=== PATIENT | male | born 1940 | race Caucasian/White ===

== ENCOUNTER 2016-12-05 14:24 | Inpatient (IN) ==
[2016-12-05] MEDS ORDERED: ACETAMINOPHEN 325 MG TABLET PO PRN (14:33)
[2016-12-05] MEDS ORDERED: ZALEPLON 5 MG CAPSULE PO PRN (14:33)
[2016-12-05] MEDS ORDERED: ONDANSETRON 4 MG/2 ML VIAL IV PRN (14:33)
[2016-12-05] MEDS ORDERED: ENOXAPARIN 40 MG/0.4 ML SYRINGE ONE (17:26)
[2016-12-05] MEDS: SODIUM CHLORIDE 0.9% 1,000 ML IV SCH (17:39)
[2016-12-05] MEDS: CLINDAMYCIN INJ 600 MG in PREMIX 1 EACH IV SCH (17:40)
[2016-12-05] MEDS ORDERED: ENOXAPARIN 30 MG/0.3 ML SYRINGE SUBCUT SCH (18:00)
[2016-12-05] MEDS ORDERED: PIPERACILLIN/TAZOBACTAM 3,375 MG in SODIUM CHLORIDE 0.9% 100 ML IV SCH (18:00)
[2016-12-05] MEDS ORDERED: HEPARIN 5,000 UNIT/1 ML VIAL IV ONE (19:47)
--- NOTE | 2016-12-05 19:53 | Hospitalist History & Physical ---
Assessment and Plan - Time spent with patient Time spent with patient: Greater than 30 minutes (1) Deep vein thrombosis (DVT) of right lower extremity Status: Acute Assessment and plan: Start heparin drip. The patient received Lovenox at the outside facility. Heparin drip per protocol and transition to Coumadin or and NOAC once renal function improves Current Visit: Yes Qualifiers: Affected thrombotic vein of extremity: popliteal Chronicity: acute Qualified Code(s): I82.431 - Acute embolism and thrombosis of right popliteal vein (2) Cellulitis of right lower extremity Status: Acute Assessment and plan: Start Teflaro, renal dose 300 mg's IV every 12 hours and continue clindamycin. Current Visit: Yes (3) Polycythemia Status: Acute Assessment and plan: Continue home medications. Consult Dr. Ward. Current Visit: Yes (4) Hypertension Status: Chronic Assessment and plan: The patient was on lisinopril and hydrochlorothiazide as an outpatient. Those have been discontinued secondary to acute kidney injury. Will monitor blood pressure in order as needed hydralazine. Avoid nephrotoxic medications. Current Visit: Yes Qualifiers: Hypertension type: essential hypertension Qualified Code(s): I10 - Essential (primary) hypertension (5) Acute kidney injury Status: Acute Assessment and plan: Avoid nephrotoxic medications. Consult nephrology. Hydrate with IV fluids. I suspect this is related to the combination of POLY inhibitor, hydrochlorothiazide , Bactrim. The patient is not hypotensive and does not appear to have acute tubular necrosis. He is making urine and reports it is clear in color. Will also obtain a UA. No indication for renal ultrasound at this time. Current Visit: Yes History of Present Illness Chief complaint: Right lower extremity redness and swelling History of present illness: Mr. Galvan is a 76 year old male transferred from [facility] this afternoon for further evaluation of right lower extremity redness and swelling. The patient was admitted to the hospital yesterday afternoon for treatment of cellulitis of the right lower extremity that began approximately 1-2 weeks ago. The patient was treated as an outpatient with Bactrim. His infection did not resolve and worsened prompting him to go to his doctor's office. He had a lower extremity Doppler that showed a DVT in the superficial femoral vein and popliteal vein. Femoral vein was unremarkable. The patient also has acute kidney injury with a creatinine of 3.5 and a BUN of 68. He was transferred here for further evaluation by nephrology and general surgery. He has a history of polycythemia and is followed by Dr. Ward and Dr. Jose Miguel Payne. He reports having a entry wound into the medial right calf. 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 He thinks this happened back in June. Since that time it has developed redness and drained some purulent material. He was treated with Bactrim as an outpatient. He denies any fever or chills. No nausea or vomiting. No recent hospitalizations. The patient is a full code. His home medications were reviewed and reconciled. His son was present at the bedside at the time of my evaluation. Patient is notably hard of hearing. Home Medications Medication Instructions Recorded Confirmed Type Hydroxyurea 1,000 mg PO DAILY 12/05/16 12/05/16 History Levothyroxine Tab [Synthroid Tab] 125 mcg PO DAILY@0700 12/05/16 12/05/16 History Lisinopril 20 mg PO DAILY 12/05/16 12/05/16 History hydroCHLOROthiazide 1 tablet PO DAILY 12/05/16 12/05/16 History [Hydrochlorothiazide] Allergies Allergy/AdvReac Type Severity Reaction Status Date / Time No Known Allergies Allergy Verified 12/05/16 16:50 Medical,Surgical,& Family Hx - Medical History Cardio: History of: Hypertension Endocrine: History of: Thyroid Disorder Hematology: History of: Clotting Problems (Polycytopenia) Other: History of: Cancer (prostate, 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,) - Surgical History Additional Surgical History: Skin cancer excisions - Family History Family History: Reports;: Family Cancer (dad-lymphoma), Family Diabetes (mother) , Family Heart Disease (mother, brother) - Social History Smoking Status: Never smoker Frequency of Alcohol Use: None Type of Drug Use: None Marital Status: Lives With:: Alone Functional capacity: independent ambulation 12 point system: reviewed and no additional remarkable complaints except as stated - Musculoskeletal Musculoskeletal: Present: as per HPI Exam - Constitutional Vitals: Period Temp Pulse Resp BP Sys/Pineda Pulse Ox Last 24 Hr 96.9 F 68 20 137/71 98 Exam: Constitutional System: No distress. No tremulousness. The patient was pleasant and cooperative. He is hard of hearing. He wears hearing aids in both ears. Head: Normocephalic, atraumatic. Ears, Nose and Throat System: No pain or tenderness. No epistaxis or discharge. Eyes System: Pupils equal, round, and reactive. Extraocular muscles intact. Neck: Supple, without adenopathy, No jugular venous distention. No thyromegaly, neck mass, or prior surgery apparent. Respiratory System: Chest clear to auscultation. Cardiovascular System: Heart with regular rate and rhythm. No murmur. GI System: Abdomen soft, nontender. Normo active bowel sounds present. Musculoskeletal System: Right lower extremity with redness and warmth distal to the knee and all the way down to the ankle. It is worse on the medial side of the leg and appears to spare the most of the posterior aspect of the right lower extremity. There is some redness and swelling just below the medial malleolus. Of note the patient has a chronic wound to the right great toe which does not appear acutely infected but does express some serosanguineous fluid that is nonpurulent. This does not appear to be the focus of the infection. More proximally on the medial calf, is an area of necrosis with eschar. The patient reports this is the primary entry wound several weeks back. He has full range of motion and full distal pulses. Neurological System: No discernable sensory deficit. No aphasia Psychiatric System: Conversation is rational Results - Labs Lab Results: I have reviewed the past 24 hour labs Labs: Labs from the outside facility were reviewed - Diagnostic Findings Procedure: Ultrasound: report reviewed by me Quality Measures - VTE Contraindication to Mechanical VTE Prophylaxis: Current Diagnosis of DVT
[2016-12-05] MEDS ORDERED: hydrALAZINE 20 MG/1 ML VIAL IV PRN (20:00)
[2016-12-05] MEDS: HEPARIN DRIP 25,000 UNITS/500 ML PREMIX IV SCH (22:07)
[2016-12-05] MEDS: CEFTAROLINE 300 MG in SODIUM CHLORIDE 0.9% 100 ML IV SCH (22:17)
[2016-12-06] MEDS: CLINDAMYCIN INJ 600 MG in PREMIX 1 EACH IV SCH ×4 (00:26→18:00)
[2016-12-06 05:38] LABS: Basophils # 0.1 10*3/uL (0.0-0.2); Basophils % 1.2 % (0.0-0.8); Eosinophils # 0.3 10*3/uL (0.0-0.87); Eosinophils % 2.1 % (0.00-10.9); Hematocrit 49.3 VOL% (42.0-52.0); Hemoglobin 17.1 GM/DL (14.0-18.0); Immature Granulocytes % 0.8 %; Lymphocytes # 6.8 10*3/uL (1.4-4.0); Mean Corpuscular HGB Conc 34.7 GM/DL (32-36); Mean Corpuscular Hemoglobin 39 PG (27-34); Monocytes # 0.5 10*3/uL (0.11-0.8); Monocytes % 4.3 % (1.7-12.7); NRBC # 0.04 10*3/uL; Neutrophils # 4.3 10*3/uL (1.4-7.4); Neutrophils % 35.6 % (38.7-73.9); Platelet Count 131 T/CUMM (130-400); Red Blood Count 4.44 MC/CUMM (3.8-5.5); Red Cell Distribution Width 17.5 % (9.3-17.3); White Blood Count 12.2 T/CUMM (4-12)
[2016-12-06] MEDS: LEVOTHYROXINE 125 MCG TABLET PO SCH (06:06)
[2016-12-06 06:09] LABS: Eosinophils 5 % (0-10); Lymphocytes 34 % (20-55); Platelet Estimate Adequate; Segmented Neutrophils 56 % (50-85); Smudge Cells Moderate; Total Cells Counted 100
[2016-12-06 06:42] LABS: Albumin 2.9 G/DL (3.4-5.0); Bilirubin,Total 0.6 MG/DL (0.2-1.0); Calcium 8.6 MG/DL (8.5-10.1); Magnesium 2.2 MG/DL (1.8-2.4); Potassium 5.4 MMOL/L (3.5-5.1); Total Protein 6.6 G/DL (6.4-8.3)
[2016-12-06] MEDS ORDERED: SODIUM POLYSTYRENE SULFATE 15 GM/60 ML BOTTLE PO STA (06:59)
--- NOTE | 2016-12-06 08:20 | Hematology Consult ---
Assessment and Plan - Time spent with patient Time spent with patient: Greater than 30 minutes (1) Polycythemia Status: Acute Assessment and plan: There is very little to offer from hematology standpoint beyond what you are already doing. I agree with anticoagulation and IV antibiotics. Patient should just remain on his Hydrea at his current dosing. Once he is discharged home and likely on Coumadin, he can continue his follow-up with Dr. Ervin in [place]. I will check back in on him tomorrow. If there are any further questions that we can address, please feel free to contact me. Current Visit: Yes (2) Deep vein thrombosis (DVT) of right lower extremity Status: Acute Current Visit: Yes Qualifiers: Affected thrombotic vein of extremity: popliteal Chronicity: acute Qualified Code(s): I82.431 - Acute embolism and thrombosis of right popliteal vein (3) Cellulitis of right lower extremity Status: Acute Current Visit: Yes History of Present Illness - Consult Narrative History of present illness: Mr. Galvan is a 76 year old male with a long-standing history of polycythemia vera followed by Dr. Jose Miguel Ervin in [place] and being treated with Hydrea. He was previously followed here at [facility] by me until March 2016 when he transferred his care to [place] to be closer to home. We no longer see him here locally. He was sent here by Dr. Walls from [place] for evaluation of right lower extremity cellulitis and newly found right lower extremity DVT. Is currently on IV antibiotics and heparin infusion. His CBC is within a good range. It sounds like his cellulitis has been an off and on bilateral now for the past few months. My suspicion is that the DVT developed due to the persistent issues with cellulitis. People with PCV are also at a high risk for DVT formation but not usually when there are hemoglobin and hematocrit levels are within normal range. CC: Yumiko Cortez MD - Home Medications and Allergies Home Medications: Home Medications Medication Instructions Recorded Confirmed Type Hydroxyurea 1,000 mg PO DAILY 12/05/16 12/05/16 History Levothyroxine Tab [Synthroid Tab] 125 mcg PO DAILY@0700 12/05/16 12/05/16 History Lisinopril 20 mg PO DAILY 12/05/16 12/05/16 History hydroCHLOROthiazide 1 tablet PO DAILY 12/05/16 12/05/16 History [Hydrochlorothiazide] Allergies/Adverse Reactions: Allergies Allergy/AdvReac Type Severity Reaction Status Date / Time No Known Allergies Allergy Verified 12/05/16 16:50 Medical,Surgical,& Family Hx - Medical History Cardio: History of: Hypertension Endocrine: History of: Thyroid Disorder Hematology: History of: Clotting Problems (Polycytopenia) Other: History of: Cancer (prostate, 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,) - Family History Family History: Reports;: Family Cancer (dad-lymphoma), Family Diabetes (mother) , Family Heart Disease (mother, brother) - Social History Smoking Status: Never smoker Frequency of Alcohol Use: None Type of Drug Use: None 12 point system: reviewed and no additional remarkable complaints except as stated - Constitutional Constitutional: Absent: chills, fever(s) - Cardiovascular Cardiovascular ROS IM: Present: edema. Absent: chest pain - Respiratory Respiratory: Absent: cough, dyspnea - Gastrointestinal Gastrointestinal: Absent: abdominal pain Exam - Constitutional Vitals: Period Temp Pulse Resp BP Sys/Pineda Pulse Ox Last 24 Hr 96.6 F-97.2 F 60-68 18-20 122-137/60-71 94-98 General appearance: normal weight, no acute distress - Head Head Exam: Present: normocephalic, atraumatic - Eye Eye Exam: Present: EOMI Pupils: Present: PERRL - ENT ENT exam: Present: normal exam, normal oropharynx - Neck Neck exam: Absent: lymphadenopathy, thyromegaly - Respiratory Respiratory exam: Present: CTAB. Absent: wheezes - Cardiovascular Cardiovascular exam: Present: RRR. Absent: JVD - GI/Abdominal GI/Abdominal exam: Present: soft. Absent: ascites, distended, mass - Neurological Exam Neurological exam: Present: alert, oriented X3 - Psychiatric Psychiatric exam: Present: normal affect, normal mood - Skin Skin exam: Present: warm, dry Results - Labs CBC & BMP: 12/06/16 04:59 12/06/16 04:59 Lab Results: I have reviewed the past 24 hour labs - Diagnostic Findings Procedure: Ultrasound: report reviewed by me Quality Measures - VTE Contraindication to Mechanical VTE Prophylaxis: Current Diagnosis of DVT
--- NOTE | 2016-12-06 09:22 | General Surgery Consult Note ---
Assessment and Plan - Time spent with patient Time spent with patient: Less than 30 minutes (1) Cellulitis of right lower extremity Status: Acute Assessment and plan: He appears to have a cellulitis and the source of this is unclear. He does not recall ever having an x-ray of his lower extremity to make sure that there is not a foreign body present in the site of this wound that has not healed. We will obtain an x-ray. I would agree with the IV antibiotics and elevation as you are doing. Current Visit: Yes History of Present Illness Chief complaint: Infection right leg History of present illness: Mr. Galvan is a 76 year old male Who has had a intermittently healing and then draining area of his right medial calf. He states this is an area where he had an injury while working on a car back in June. He was not aware that it is really changed or gotten worse in the last few days when he had increased redness swelling and discomfort of his right lower extremity. The pain he has had in his right lower extremity has been very mild. He is unaware of fever or chills. He is also had an ulcer of his right great toe treated in the past by Dr. Yang and she had told him recently that this was healed. He does not know of any aggravating or alleviating factors. Home Medications Medication Instructions Recorded Confirmed Type Hydroxyurea 1,000 mg PO DAILY 12/05/16 12/05/16 History Levothyroxine Tab [Synthroid Tab] 125 mcg PO DAILY@0700 12/05/16 12/05/16 History Lisinopril 20 mg PO DAILY 12/05/16 12/05/16 History hydroCHLOROthiazide 1 tablet PO DAILY 12/05/16 12/05/16 History [Hydrochlorothiazide] Allergies Allergy/AdvReac Type Severity Reaction Status Date / Time No Known Allergies Allergy Verified 12/05/16 16:50 Medical,Surgical,& Family Hx - Medical History Cardio: History of: Hypertension Endocrine: History of: Thyroid Disorder Hematology: History of: Clotting Problems (Polycytopenia) Other: History of: Cancer (prostate, 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,) - Surgical History Additional Surgical History: Right great toe debridement - Family History Family History: Reports;: Family Cancer (dad-lymphoma), Family Diabetes (mother) , Family Heart Disease (mother, brother) - Social History Smoking Status: Never smoker Frequency of Alcohol Use: None Type of Drug Use: None - Constitutional Constitutional: Absent: anorexia, chills, fever(s) - Cardiovascular Cardiovascular: Absent: chest pain at rest, chest pain with activity, diaphoresis, dyspnea, dyspnea on exertion, syncope - Respiratory Respiratory: Absent: dyspnea, hemoptysis, dyspnea on exertion - Gastrointestinal Gastrointestinal: Absent: abdominal pain, hematemesis, hematochezia, nausea, vomiting - Genitourinary Genitourinary: Absent: hematuria - Musculoskeletal Musculoskeletal: Absent: back pain - Neurological Neurological: Absent: focal weakness, syncope - Endocrine Endocrine: Absent: polyuria Hematologic/Lymphatic: Absent: easy bleeding, easy bruising Exam - Constitutional Vitals: Period Temp Pulse Resp BP Sys/Pineda Pulse Ox Last 24 Hr 96.6 F-97.2 F 60-68 18-20 122-137/60-71 94-98 General appearance: no acute distress - Head Head exam: Present: normocephalic - Eye Eye exam: Absent: scleral icterus - ENT Mouth exam: Present: normal voice - Neck Neck exam: Present: trachea midline. Absent: tenderness - Respiratory Respiratory exam: Present: clear to auscultation bilaterally. Absent: accessory muscle use - Cardiovascular Cardiovascular exam: Present: RRR - GI/Abdominal GI/Abdominal exam: Present: soft. Absent: distended, guarding, tenderness, rebound - Extremities Exam Extremities exam: Present: edema, other (He does have palpable pedal pulses) - Neurological Exam Neurological exam: Present: alert, oriented X3. Absent: motor sensory deficit Quality Measures - VTE Contraindication to Mechanical VTE Prophylaxis: Current Diagnosis of DVT Results - Labs CBC & BMP: 12/06/16 04:59 12/06/16 04:59 Lab Results: I have reviewed the past 24 hour labs
[2016-12-06] MEDS: SODIUM CHLORIDE 0.9% 1,000 ML IV SCH ×3 (09:41→21:50)
[2016-12-06] MEDS: PANTOPRAZOLE 40 MG TABLET PO SCH (09:42)
[2016-12-06] MEDS: HYDROXYUREA 500 MG CAPSULE PO SCH (09:42)
[2016-12-06] MEDS: CEFTAROLINE 300 MG in SODIUM CHLORIDE 0.9% 100 ML IV SCH ×2 (09:42→21:51)
--- NOTE | 2016-12-06 10:09 | Hospitalist Progress Note ---
Assessment and Plan (1) Deep vein thrombosis (DVT) of right lower extremity Status: Acute Assessment and plan: Continue Heparin protocol. No SOB or chest pain. Current Visit: Yes Qualifiers: Affected thrombotic vein of extremity: popliteal Chronicity: acute Qualified Code(s): I82.431 - Acute embolism and thrombosis of right popliteal vein (2) Cellulitis of right lower extremity Status: Acute Assessment and plan: continue with IV antibiotics and elevation Follow Xray report and Surgery's recommendations Current Visit: Yes (3) Polycythemia Status: Acute Assessment and plan: Follow Hem/Onc's recommendations Current Visit: Yes (4) Hypertension Status: Chronic Assessment and plan: stable Current Visit: Yes Qualifiers: Hypertension type: essential hypertension Qualified Code(s): I10 - Essential (primary) hypertension (5) Acute kidney injury Status: Acute Assessment and plan: most likely due to drugs. Plan continue IVF continue to hold Nephrotoxics BMP in am Current Visit: Yes (6) Hyperkalemia Status: Acute Assessment and plan: Kayexalate x1 BMP in am. Current Visit: Yes Hospitalist: Subjective Interval history: 76yr old admitted overnight for multiple issue. Surgery saw patient this am and they have requested for Xrays of the right leg.He was give a dose of kayexalate this am due to hyperkalemia. His IVF was also reduced to 100cc/hr. He feels ok this am and had no new complaints. Exam - Constitutional Vitals: Period Temp Pulse Resp BP Sys/Pineda Pulse Ox Last 24 Hr 96.6 F-97.2 F 60-68 18-20 122-137/60-71 94-98 General appearance: no acute distress - Head Head exam: Present: normal inspection - Respiratory Respiratory exam: Present: clear to auscultation bilaterally - Cardiovascular Cardiovascular exam: Present: regular rate and rhythm - GI/Abdominal GI/Abdominal exam: Present: normal bowel sounds - Extremities Exam Extremities exam: Present: other (swelling and redness of right leg) - Neurological Exam Neurological exam: Present: alert, oriented X3 Results - Labs CBC & BMP: 12/06/16 04:59 12/06/16 04:59 Lab Results: I have reviewed the past 24 hour labs Quality Measures - VTE Contraindication to Mechanical VTE Prophylaxis: Current Diagnosis of DVT
--- NOTE | 2016-12-06 10:57 | XRay Report ---
Exam: XR tibia fibula RT Date: 12/06/2016 9:24 AM Comparison: None Indication: Cellulitis, evaluate for foreign body Technique:[AP and lateral right tibia/fibula] Findings: Soft tissue swelling. Joint space narrowing with sclerosis and osteophytes. Sclerotic ossific findings are noted. No acute fracture, dislocation, or definite radiopaque foreign body. Vascular calcifications are noted. Impression: Soft tissue swelling with no fracture, dislocation, or definite radiopaque foreign body. Foreign body may be present which is occult on x-ray. Moderate degenerative changes with possible old healed fractures in the distal right tibia. PROCEDURE INTERPRETED AT [facility] DEPARTMENT OF RADIOLOGY Final Report Signed by: Dr. Dahlia Merida
--- NOTE | 2016-12-06 13:00 | Nephrology Consult Note ---
History of Present Illness Chief complaint: Increased BUN and creatinine History of present illness: Mr. Galvan is a 76 year old male with a history of hypertension who was admitted yesterday when he presented to his local doctor with swelling and redness in his right lower leg. Patient was found to have a increased creatinine as well at that time. Patient states he has been having a sore, and go on his right leg for the past 3-4 months. He states it will get red and swollen and scab over then he will up and then recur later. On this occasion the patient's swelling and redness did not resolve he subsequently went to his local doctor and was found to have a clot in his leg in addition to the aforementioned findings. The patient denies any previous problems with his kidneys. He states he did have prostate cancer. He denies taking any pain medication or nonsteroidal anti-inflammatory medications. He denies any recent antibiotics prior to his admission here. The patient denies any nausea vomiting or diarrhea except having a little bit of loose stool since being given some Kayexalate on admission. He states he is not been eating quite as well as he should be prior to his admission. 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 ROS: Head - denies headaches ENT - denies sore throat Lymphatics - denies lymphadenopathy Hematology - denies bleeding problems Heart - denies chest pain Lungs - denies shortness of breath Abdomen - denies abdominal pain Musculoskeletal - denies arthritis Skin - denies rash Neurology - denies stroke General - denies fever PE: General: in no acute distress Eyes: Pupils are round and reactive, conjunctivae are clear ENT: Nose is clear, O/P is benign Neck: Supple, no thyromegaly Lymphatics: No cervical, supraclavicular or axillary adenopathy Heart: Regular rate and rhythm, no edema Lungs: Clear to auscultation anteriorly, chest expansion symmetric Abdomen: Soft, normoactive bowel sounds, no hepatomegaly Musculoskeletal: Patient's right leg is reddish in color with a quarter-sized scabbed lesion over his altman, there is also increased swelling in this leg, otherwise there is no joint erythema or effusions and no joint asymmetry. Skin: Normal turgor, normal hydration, no rash Neuro/Psych: Alert and cooperative with fair insight Home Medications Medication Instructions Recorded Confirmed Type Hydroxyurea 1,000 mg PO DAILY 12/05/16 12/05/16 History Levothyroxine Tab [Synthroid Tab] 125 mcg PO DAILY@0700 12/05/16 12/05/16 History Lisinopril 20 mg PO DAILY 12/05/16 12/05/16 History hydroCHLOROthiazide 1 tablet PO DAILY 12/05/16 12/05/16 History [Hydrochlorothiazide] Allergies Allergy/AdvReac Type Severity Reaction Status Date / Time No Known Allergies Allergy Verified 12/05/16 16:50 Medical,Surgical,& Family Hx - Medical History Cardio: History of: Hypertension Endocrine: History of: Thyroid Disorder Hematology: History of: Clotting Problems (Polycytopenia) Other: History of: Cancer (prostate, 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,) - Surgical History Additional Surgical History: Skin graft to his right leg - Family History Family History: Reports;: Family Cancer (dad-lymphoma), Family Diabetes (mother) , Family Heart Disease (mother, brother) - Social History Smoking Status: Never smoker Frequency of Alcohol Use: None Type of Drug Use: None Exam - Vital Signs Vital signs: Period Temp Pulse Resp BP Sys/Pineda Pulse Ox Last 24 Hr 96.6 F-97.3 F 60-68 18-20 122-137/60-71 94-98 Results - Labs CBC & BMP: 12/06/16 04:59 12/06/16 04:59 Assessment and Plan (1) Acute kidney injury Status: Acute Assessment and plan: I suspect this patient has some ATN injury related to his leg wound. Patient states he had not been eating and drinking quite as well as he had been in the past. In addition the patient takes an POLY inhibitor and a diuretic which may have exacerbated the strain to his kidneys from the right leg wound. I agree with IV fluids as ordered and the antibiotics. Hopefully his creatinine will begin to improve as his leg infection improves. I will continue to hold his POLY inhibitor and diuretic for now. Current Visit: Yes (2) Metabolic acidosis Status: Acute Assessment and plan: Give the patient some sodium bicarbonate Current Visit: Yes (3) Cellulitis of right lower extremity Status: Acute Assessment and plan: Continue antibiotics Current Visit: Yes (4) Deep vein thrombosis (DVT) of right lower extremity Status: Acute Current Visit: Yes Qualifiers: Affected thrombotic vein of extremity: popliteal Chronicity: acute Qualified Code(s): I82.431 - Acute embolism and thrombosis of right popliteal vein (5) Hyperkalemia Status: Acute Assessment and plan: This should improve with the IV fluids and correction of his acidosis Current Visit: Yes (6) Polycythemia Status: Acute Current Visit: Yes (7) Hypertension Status: Chronic Assessment and plan: Continue to monitor. Current Visit: Yes Qualifiers: Hypertension type: essential hypertension Qualified Code(s): I10 - Essential (primary) hypertension
[2016-12-06] MEDS: HEPARIN DRIP 25,000 UNITS/500 ML PREMIX IV SCH (16:20)
[2016-12-06] MEDS: SODIUM BICARBONATE 650 MG TABLET PO SCH (21:53)
[2016-12-07] MEDS: CLINDAMYCIN INJ 600 MG in PREMIX 1 EACH IV SCH ×4 (00:44→18:06)
[2016-12-07 05:31] LABS: Basophils # 0.1 10*3/uL (0.0-0.2); Eosinophils # 0.3 10*3/uL (0.0-0.87); Eosinophils % 2.3 % (0.00-10.9); Hemoglobin 15.9 GM/DL (14.0-18.0); Immature Granulocytes % 0.6 %; Immature Granulocytes Absolute 0.07 #; Lymphocytes # 6.7 10*3/uL (1.4-4.0); Lymphocytes % 59.4 % (21.2-54.2); Mean Corpuscular HGB Conc 34.6 GM/DL (32-36); Mean Corpuscular Hemoglobin 39 PG (27-34); Mean Corpuscular Volume 111.7 FL (87-102); Mean Platelet Volume 9.8 FL (9.6-12.0); Monocytes # 0.4 10*3/uL (0.11-0.8); Monocytes % 3.1 % (1.7-12.7); Neutrophils # 3.8 10*3/uL (1.4-7.4); Neutrophils % 33.6 % (38.7-73.9); Platelet Count 134 T/CUMM (130-400); Red Blood Count 4.12 MC/CUMM (3.8-5.5); White Blood Count 11.3 T/CUMM (4-12)
[2016-12-07 06:07] LABS: Calcium 8.2 MG/DL (8.5-10.1); Osmolality,Calculated 282.8 MOS/KG (273-304); Potassium 5.1 MMOL/L (3.5-5.1)
[2016-12-07] MEDS: LEVOTHYROXINE 125 MCG TABLET PO SCH (06:34)
--- NOTE | 2016-12-07 06:57 | General Surgery Progress Note ---
Assessment and Plan (1) Cellulitis of right lower extremity Status: Acute Assessment and plan: He appears to have a cellulitis and the source of this is unclear. He does not recall ever having an x-ray of his lower extremity to make sure that there is not a foreign body present in the site of this wound that has not healed. We will obtain an x-ray. I would agree with the IV antibiotics and elevation as you are doing. 12/07: He feels better and feels like his leg looks better. I agree that the erythema has decreased and the edema has decreased. He is responding to antibiotics and anticoagulation. I will be happy to see him back in follow-up once his cellulitis resolves. We may need to address this chronic wound on his medial calf. Current Visit: Yes Subjective Patient reports: Present: feels better, pain is less. Absent: nausea, vomiting , fever Exam - Constitutional Vitals: Period Temp Pulse Resp BP Sys/Pineda Pulse Ox Last 24 Hr 96.7 F-97.5 F 60-70 18-22 113-145/58-71 92-98 General appearance: no acute distress - Head Head exam: Present: normocephalic - Eye Eye exam: Absent: scleral icterus - Respiratory Respiratory exam: Absent: accessory muscle use - Extremities Exam Extremities exam: Present: edema (This is decreased), other (His erythema has decreased). Absent: calf tenderness Results - Labs CBC & BMP: 12/07/16 05:17 12/07/16 05:17 Lab Results: I have reviewed the past 24 hour labs Quality Measures - VTE Contraindication to Mechanical VTE Prophylaxis: Current Diagnosis of DVT
[2016-12-07 06:58] LABS: Eosinophils 1 % (0-10); Lymphocytes 28 % (20-55); Segmented Neutrophils 67 % (50-85); Total Cells Counted 100
[2016-12-07 06:59] LABS: Macrocytosis 1+; Platelet Estimate Decreased; Polychromasia Slight; Smudge Cells Few; Target Cells Slight
--- NOTE | 2016-12-07 08:39 | Hematology Progress Note ---
Assessment and Plan (1) Polycythemia Status: Acute Assessment and plan: There is very little to offer from hematology standpoint beyond what you are already doing. I agree with anticoagulation and IV antibiotics. Patient should just remain on his Hydrea at his current dosing. Once he is discharged home and likely on Coumadin, he can continue his follow-up with Dr. Ervin in [place]. I will check back in on him tomorrow. If there are any further questions that we can address, please feel free to contact me. Current Visit: Yes (2) Deep vein thrombosis (DVT) of right lower extremity Status: Acute Current Visit: Yes Qualifiers: Affected thrombotic vein of extremity: popliteal Chronicity: acute Qualified Code(s): I82.431 - Acute embolism and thrombosis of right popliteal vein (3) Cellulitis of right lower extremity Status: Acute Current Visit: Yes Hematology Subjective PN Interval history: Mr. Alston his CBC is stable today. There is nothing bad from hematology standpoint. I will sign off but please call us if we are needed. Exam - Constitutional Vitals: Period Temp Pulse Resp BP Sys/Pineda Pulse Ox Last 24 Hr 96.7 F-98.0 F 62-70 18-22 113-145/58-73 92-98 Results - Labs CBC & BMP: 12/07/16 05:17 12/07/16 05:17 Quality Measures - VTE Contraindication to Mechanical VTE Prophylaxis: Current Diagnosis of DVT
[2016-12-07] MEDS: HYDROXYUREA 500 MG CAPSULE PO SCH (09:59)
[2016-12-07] MEDS: PANTOPRAZOLE 40 MG TABLET PO SCH (09:59)
[2016-12-07] MEDS: SODIUM BICARBONATE 650 MG TABLET PO SCH ×2 (09:59→22:22)
[2016-12-07] MEDS: CEFTAROLINE 300 MG in SODIUM CHLORIDE 0.9% 100 ML IV SCH (10:48)
--- NOTE | 2016-12-07 11:45 | Nephrology Progress Note ---
Nephrology - PN: Subj Interval history: Patient denies shortness of breath. Review of systems GI denies nausea or vomiting, General-patient is feeling better Physical exam general the patient is in no acute distress, his right leg looks a little improved made today. Assessment/plan 1. Acute renal failure-patient's creatinine improved to 2.1 mg/ dL from 2.9 mg/dL yesterday 2. Metabolic acidosis-patient's bicarb is 19 we will continue sodium bicarbonate replacement 3. Leg cellulitis continue antibiotics 4. Hypokalemia-patient's potassium is improved to 5.1 5. Hypertension this is controlled Exam (PN)-Nephrology - Vital Signs Vital signs: Period Temp Pulse Resp BP Sys/Pineda Pulse Ox Last 24 Hr 96.7 F-98.0 F 62-70 18-22 113-145/58-73 92-98 - Lab 12/07/16 05:17 12/07/16 05:17 Most recent lab results Calcium 8.2 MG/DL (8.5-10.1) L 12/07/16 05:17 Magnesium 2.0 MG/DL (1.8-2.4) 12/07/16 05:17 Assessment and Plan (1) Acute kidney injury Status: Acute Assessment and plan: I suspect this patient has some ATN injury related to his leg wound. Patient states he had not been eating and drinking quite as well as he had been in the past. In addition the patient takes an POLY inhibitor and a diuretic which may have exacerbated the strain to his kidneys from the right leg wound. I agree with IV fluids as ordered and the antibiotics. Hopefully his creatinine will begin to improve as his leg infection improves. I will continue to hold his POLY inhibitor and diuretic for now. Current Visit: Yes (2) Metabolic acidosis Status: Acute Assessment and plan: Give the patient some sodium bicarbonate Current Visit: Yes (3) Cellulitis of right lower extremity Status: Acute Assessment and plan: Continue antibiotics Current Visit: Yes (4) Deep vein thrombosis (DVT) of right lower extremity Status: Acute Current Visit: Yes Qualifiers: Affected thrombotic vein of extremity: popliteal Chronicity: acute Qualified Code(s): I82.431 - Acute embolism and thrombosis of right popliteal vein (5) Hyperkalemia Status: Acute Assessment and plan: This should improve with the IV fluids and correction of his acidosis Current Visit: Yes (6) Polycythemia Status: Acute Current Visit: Yes (7) Hypertension Status: Chronic Assessment and plan: Continue to monitor. Current Visit: Yes Qualifiers: Hypertension type: essential hypertension Qualified Code(s): I10 - Essential (primary) hypertension
[2016-12-07] MEDS: HEPARIN DRIP 25,000 UNITS/500 ML PREMIX IV SCH (12:21)
[2016-12-07] MEDS: SODIUM CHLORIDE 0.9% 1,000 ML IV SCH ×2 (12:29→22:20)
--- NOTE | 2016-12-07 13:23 | Hospitalist Progress Note ---
Assessment and Plan - Time spent with patient Time spent with patient: Greater than 30 minutes (pt is new to me. I reviewed pt 's chart today. I discussed with pt, RN and his family member today.) (1) Deep vein thrombosis (DVT) of right lower extremity Status: Acute Assessment and plan: Continue heparin drip. Start coumadin tonight. Current Visit: Yes Qualifiers: Affected thrombotic vein of extremity: popliteal Chronicity: acute Qualified Code(s): I82.431 - Acute embolism and thrombosis of right popliteal vein (2) Cellulitis of right lower extremity Status: Acute Assessment and plan: Continue current IV antibiotics therapy. Current Visit: Yes (3) Polycythemia Status: Acute Assessment and plan: F/u with Hem/Onc clinic Current Visit: Yes (4) Hypertension Status: Chronic Current Visit: Yes Qualifiers: Hypertension type: essential hypertension Qualified Code(s): I10 - Essential (primary) hypertension (5) Acute kidney injury Status: Acute Assessment and plan: Monitor BMP Current Visit: Yes Hospitalist: Subjective Interval history: No overnight acute event. Swelling better. On IV clinidamycin and ceftaroline for cellulitis. On IV heparin drip. Coumadin will be started tonight. Need to f/ u with Hem/onc clinic after discharge. Exam - Constitutional Vitals: Period Temp Pulse Resp BP Sys/Pineda Pulse Ox Last 24 Hr 96.7 F-98.0 F 62-73 18-22 113-145/58-77 92-98 Exam: General: Lying in bed supine. AAOx3 HEENT: NC AT EOMI PERRLA Normal lips and gum Lungs: B/L CTA Heart: +S1/S2, RRR Abd: +BS NT ND Skin: Swelling, redness and tenderness at right leg area. Neuro: AAOx3 Results - Labs CBC & BMP: 12/07/16 05:17 12/07/16 05:17 Quality Measures - VTE Contraindication to Mechanical VTE Prophylaxis: Current Diagnosis of DVT
[2016-12-07 14:38] LABS: INR 1.1; PT Patient Result 11.4 SECS
[2016-12-07] MEDS: WARFARIN 5 MG TABLET PO SCH (18:13)
[2016-12-07] MEDS: CEFTAROLINE 400 MG in SODIUM CHLORIDE 0.9% 100 ML IV SCH (21:55)
[2016-12-08] MEDS: CLINDAMYCIN INJ 600 MG in PREMIX 1 EACH IV SCH ×4 (00:55→18:21)
[2016-12-08 02:36] LABS: INR 1.1; PT Patient Result 11.3 SECS
[2016-12-08 02:53] LABS: Calcium 7.8 MG/DL (8.5-10.1); Magnesium 1.9 MG/DL (1.8-2.4); Osmolality,Calculated 280.7 MOS/KG (273-304); Potassium 5.1 MMOL/L (3.5-5.1)
[2016-12-08] MEDS: HEPARIN DRIP 25,000 UNITS/500 ML PREMIX IV SCH (06:20)
[2016-12-08] MEDS: LEVOTHYROXINE 125 MCG TABLET PO SCH (06:39)
[2016-12-08] MEDS: HYDROXYUREA 500 MG CAPSULE PO SCH (09:57)
[2016-12-08] MEDS: PANTOPRAZOLE 40 MG TABLET PO SCH (09:58)
[2016-12-08] MEDS: SODIUM BICARBONATE 650 MG TABLET PO SCH ×2 (09:58→22:03)
[2016-12-08] MEDS: CEFTAROLINE 400 MG in SODIUM CHLORIDE 0.9% 100 ML IV SCH ×2 (09:59→22:02)
[2016-12-08] MEDS: SODIUM CHLORIDE 0.9% 1,000 ML IV SCH ×2 (10:06→23:14)
--- NOTE | 2016-12-08 11:44 | Event Note ---
12/08/2016. Patient in with a history of cellulitis to the right leg. The right lower extremity remains a little bit swollen at this time as well as the foot. There is good pulses in the dorsalis pedis at 3+. There is still some changes on the lower extremity a little bit of confusing picture in this discoloration across the pretibial area looks in either like a cellulitis versus hemorrhage under the skin versus some superficial ischemic change. It is a little bit difficult for me to really get a feel for this. The ulcer on the right great toe is small minimal almost basically healed. The area on his leg though still has a thick eschar on it and do not know what is underneath that at this time. Will maintain present antibiotics and wound care at this point.
--- NOTE | 2016-12-08 14:00 | Nephrology Progress Note ---
Nephrology - PN: Subj Interval history: Patient is resting comfortably. Serum creatinine is now down to 1.9. No other acute changes no fevers or chills. Erythema noted on right lower leg. No further recommendations at this time. Exam (PN)-Nephrology - Vital Signs Vital signs: Period Temp Pulse Resp BP Sys/Pineda Pulse Ox Last 24 Hr 96.8 F-97.8 F 63-69 18-22 126-151/64-76 95-98 - General Appearance General appearance: well-developed, well-nourished EENT: ATNC Neck: supple Respiratory: clear Cardiology: regular rate, regular rhythm Gastrointestinal: normoactive bowel sounds, no tenderness Neurologic: alert and oriented x3 Musculoskeletal: erythema (Cellulitis of right lower leg) Psychiatric: mood/affect appropriate - Lab 12/07/16 05:17 12/08/16 01:56 Most recent lab results Calcium 7.8 MG/DL (8.5-10.1) L 12/08/16 01:56 Magnesium 1.9 MG/DL (1.8-2.4) 12/08/16 01:56 Assessment and Plan (1) Hypertension Status: Chronic Assessment and plan: Blood pressure stable. Current Visit: Yes Qualifiers: Hypertension type: essential hypertension Qualified Code(s): I10 - Essential (primary) hypertension (2) Acute kidney injury Status: Acute Assessment and plan: Renal function is improving. Creatinine is 1.9. Current Visit: Yes
--- NOTE | 2016-12-08 15:29 | Hospitalist Progress Note ---
Assessment and Plan (1) Tounk-qz-zcbqoqt kidney injury Status: Acute Assessment and plan: Continue current management. Encourage oral fluid intake Current Visit: Yes (2) Deep vein thrombosis (DVT) of right lower extremity Status: Acute Assessment and plan: Patient is on heparin and Coumadin. Targeting INR of 2 to stop heparin and 2-3 for therapeutic range Current Visit: Yes Qualifiers: Affected thrombotic vein of extremity: popliteal Chronicity: acute Qualified Code(s): I82.431 - Acute embolism and thrombosis of right popliteal vein (3) Cellulitis of right lower extremity Status: Acute Assessment and plan: Continue current management. He is on Teflaro and clindamycin Current Visit: Yes (4) Polycythemia Status: Acute Assessment and plan: Patient is followed by his physician in [facility]. His hematocrit today is 46%. Current Visit: Yes Hospitalist: Subjective Interval history: Patient has been seen interviewed and examined and chart has been reviewed admitted to the hospital was thought to be right lower extremity cellulitis and found to have a DVT diuretic. From this gentleman is being treated for polycythemia vera is to be on a 1 phlebotomy month now in recent days he started to be drawn twice at each sitting. Chances are that hematocrit was quite high in the days preceding his admission as explaining the DVT. Otherwise this DVT would be unprovoked. Exam - Constitutional Vitals: Period Temp Pulse Resp BP Sys/Pineda Pulse Ox Last 24 Hr 96.8 F-97.8 F 63-69 18-22 126-151/64-76 95-98 General appearance: normal weight, no acute distress - Head Head exam: Present: normal inspection - Eye Eye exam: Present: EOMI Pupils: Present: JOSE - ENT ENT exam: Present: normal exam - Neck Neck exam: Present: normal inspection - Respiratory Respiratory exam: Present: clear to auscultation bilaterally - Cardiovascular Cardiovascular exam: Present: regular rate and rhythm - Extremities Exam Extremities exam: Present: full ROM, other (Noted is clubbed a skin excoriation in the medial aspect of the lower right leg there is erythema and swelling to the left to the right lower extremity) - Neurological Exam Neurological exam: Present: alert, oriented X3, CN II-XII intact, other (Heart reveals a) - Psychiatric Psychiatric exam: Present: normal affect, normal mood Results - Labs CBC & BMP: 12/07/16 05:17 12/08/16 01:56 Lab Results: I have reviewed the past 24 hour labs (International normalizing ratio is still subtherapeutic. Today's that day #2 on Coumadin. Patient is also on heparin) Quality Measures - VTE Contraindication to Mechanical VTE Prophylaxis: Current Diagnosis of DVT
[2016-12-08] MEDS: WARFARIN 5 MG TABLET PO SCH (18:22)
[2016-12-09] MEDS: CLINDAMYCIN INJ 600 MG in PREMIX 1 EACH IV SCH ×5 (00:55→23:50)
[2016-12-09] MEDS: HEPARIN DRIP 25,000 UNITS/500 ML PREMIX IV SCH ×2 (01:19→20:12)
[2016-12-09] MEDS: LEVOTHYROXINE 125 MCG TABLET PO SCH (06:41)
--- NOTE | 2016-12-09 08:50 | Event Note ---
12/09/2016. Patient's leg remains stable at this point time. Skin changes remained pretty much unchanged in a sterile have a good feel for what is causing them at this time. They do not ludmila at this time I do not know if there is been some trauma with some bleeding under the skin. Certainly worry about some ischemic changes to the skin edges if this how they may have come in with the cellulitis. The right great toe ulcer is pretty much healed and there is no swelling or edema there. The wound on the medial aspect of the leg still has a eschar that should be removed so we can get better care to it. Did not have a feel for where he is come from but certainly he has been stable over the last couple days. Will start some special care to his legs to try to get things a little better shape as well as a little stocking necrotic and will compression to his legs.
[2016-12-09 09:52] LABS: INR 1.3; PT Patient Result 14.3 SECS
[2016-12-09] MEDS: SODIUM BICARBONATE 650 MG TABLET PO SCH ×2 (10:14→20:19)
[2016-12-09] MEDS: PANTOPRAZOLE 40 MG TABLET PO SCH (10:14)
[2016-12-09] MEDS: HYDROXYUREA 500 MG CAPSULE PO SCH (10:14)
[2016-12-09] MEDS: SODIUM CHLORIDE 0.9% 1,000 ML IV SCH ×3 (10:14→23:44)
[2016-12-09] MEDS: CEFTAROLINE 400 MG in SODIUM CHLORIDE 0.9% 100 ML IV SCH ×2 (10:14→20:19)
[2016-12-09] MEDS: BACITRACIN OINT 0.9 GM PACK TOP SCH (10:20)
[2016-12-09] MEDS: SKIN HEALING OINT (AQUAPHOR) 50 GM TUBE TOP SCH (10:21)
--- NOTE | 2016-12-09 11:54 | Hospitalist Progress Note ---
Assessment and Plan (1) Kbazi-ij-culpnyn kidney injury Status: Acute Assessment and plan: Continue current management. Encourage oral fluid intake Current Visit: Yes (2) Deep vein thrombosis (DVT) of right lower extremity Status: Acute Assessment and plan: Patient is on heparin and Coumadin. Targeting INR of 2 to stop heparin and 2-3 for therapeutic range Current Visit: Yes Qualifiers: Affected thrombotic vein of extremity: popliteal Chronicity: acute Qualified Code(s): I82.431 - Acute embolism and thrombosis of right popliteal vein (3) Cellulitis of right lower extremity Status: Acute Assessment and plan: Continue current management. He is on Teflaro and clindamycin Current Visit: Yes (4) Polycythemia Status: Acute Assessment and plan: Patient is followed by his physician in [facility]. His hematocrit today is 46%. Current Visit: Yes Hospitalist: Subjective Interval history: Patient has been seen interviewed and examined and chart has been reviewed. Second day of encounter admitted to the hospital cellulitis right lower extremity history of trauma to that leg. He also found to have a DVT in that leg. Patient is currently on heparin and also Coumadin 5 mg at 6 PM. His INR is up to 1.3 daily. We are targeting therapeutic INR between 2 and 3. Continue 5 mg Coumadin does not bring it out tomorrow above to raise dose of Coumadin 7.5. There is dose #3. Exam - Constitutional Vitals: Period Temp Pulse Resp BP Sys/Pineda Pulse Ox Last 24 Hr 96.9 F-97.7 F 62-94 18-20 126-169/64-74 94-97 General appearance: normal weight, no acute distress - Head Head exam: Present: normal inspection, normocephalic - Eye Eye exam: Present: EOMI Pupils: Present: JOSE - ENT ENT exam: Present: normal oropharynx - Neck Neck exam: Present: normal inspection - Respiratory Respiratory exam: Present: clear to auscultation bilaterally - Cardiovascular Cardiovascular exam: Present: regular rate and rhythm - GI/Abdominal GI/Abdominal exam: Present: normal bowel sounds, soft - Extremities Exam Extremities exam: Present: full ROM - Neurological Exam Neurological exam: Present: alert, oriented X3, CN II-XII intact - Psychiatric Psychiatric exam: Present: normal affect, normal mood - Skin Skin exam: Present: warm, dry, other (Increased redness to the right lower extremity with a scabbed wound on the medial aspect below the knee. Suggestive of possible trauma from before while at home) Results - Labs CBC & BMP: 12/07/16 05:17 12/08/16 01:56 Lab Results: I have reviewed the past 24 hour labs (INR 1.3) Quality Measures - VTE Contraindication to Mechanical VTE Prophylaxis: Current Diagnosis of DVT
[2016-12-09] MEDS: WARFARIN 5 MG TABLET PO SCH (17:10)
[2016-12-10] MEDS: SODIUM CHLORIDE 0.9% 1,000 ML IV SCH ×2 (02:00→11:00)
[2016-12-10 06:12] LABS: Basophils # 0.1 10*3/uL (0.0-0.2); Basophils % 0.9 % (0.0-0.8); Eosinophils # 0.1 10*3/uL (0.0-0.87); Eosinophils % 1.2 % (0.00-10.9); Hematocrit 43.3 VOL% (42.0-52.0); Hemoglobin 14.6 GM/DL (14.0-18.0); Immature Granulocytes % 0.8 %; Immature Granulocytes Absolute 0.07 #; Lymphocytes # 5.4 10*3/uL (1.4-4.0); Lymphocytes % 58.1 % (21.2-54.2); Mean Corpuscular HGB Conc 33.7 GM/DL (32-36); Mean Corpuscular Hemoglobin 38 PG (27-34); Mean Corpuscular Volume 112.5 FL (87-102); Mean Platelet Volume 10.4 FL (9.6-12.0); Monocytes # 0.3 10*3/uL (0.11-0.8); Monocytes % 3.2 % (1.7-12.7); NRBC # 0.02 10*3/uL; Neutrophils # 3.3 10*3/uL (1.4-7.4); Neutrophils % 35.8 % (38.7-73.9); Platelet Count 149 T/CUMM (130-400); Red Blood Count 3.85 MC/CUMM (3.8-5.5); Red Cell Distribution Width 18.3 % (9.3-17.3); White Blood Count 9.3 T/CUMM (4-12)
[2016-12-10 06:19] LABS: INR 1.7; PT Patient Result 18.6 SECS
[2016-12-10] MEDS: LEVOTHYROXINE 125 MCG TABLET PO SCH (06:39)
[2016-12-10] MEDS: CLINDAMYCIN INJ 600 MG in PREMIX 1 EACH IV SCH ×3 (06:39→20:33)
[2016-12-10 07:00] LABS: Eosinophils 3 % (0-10); Lymphocytes 35 % (20-55); Macrocytosis 1+; Magnesium 1.7 MG/DL (1.8-2.4); Osmolality,Calculated 282.4 MOS/KG (273-304); Platelet Estimate Adequate; Segmented Neutrophils 60 % (50-85); Target Cells Slight; Total Cells Counted 100
[2016-12-10] MEDS: SODIUM BICARBONATE 650 MG TABLET PO SCH ×2 (11:46→20:33)
[2016-12-10] MEDS: HYDROXYUREA 500 MG CAPSULE PO SCH (11:47)
[2016-12-10] MEDS: PANTOPRAZOLE 40 MG TABLET PO SCH (11:48)
[2016-12-10] MEDS: BACITRACIN OINT 0.9 GM PACK TOP SCH (11:49)
[2016-12-10] MEDS: SKIN HEALING OINT (AQUAPHOR) 50 GM TUBE TOP SCH (11:49)
[2016-12-10] MEDS: CEFTAROLINE 400 MG in SODIUM CHLORIDE 0.9% 100 ML IV SCH ×2 (11:50→21:49)
--- NOTE | 2016-12-10 14:14 | Hospitalist Progress Note ---
Assessment and Plan (1) Hkeqc-ga-rrdpoae kidney injury Status: Acute Assessment and plan: Continue current management. Encourage oral fluid intake Current Visit: Yes (2) Deep vein thrombosis (DVT) of right lower extremity Status: Acute Assessment and plan: Patient is on heparin and Coumadin. Targeting INR of 2 to stop heparin and 2-3 for therapeutic range Current Visit: Yes Qualifiers: Affected thrombotic vein of extremity: popliteal Chronicity: acute Qualified Code(s): I82.431 - Acute embolism and thrombosis of right popliteal vein (3) Cellulitis of right lower extremity Status: Acute Assessment and plan: Continue current management. He is on Teflaro and clindamycin. Cellulitis is improved. Current Visit: Yes (4) Polycythemia Status: Acute Assessment and plan: Patient is followed by his physician in [facility]. His hematocrit today is 43.3%. Current Visit: Yes Hospitalist: Subjective Interval history: Patient is seen in interviewed and examined and chart has been reviewed. His INR is only 1.7 today. Is going up. We will give another dose of 5 mg Coumadin at 6:00 today. Repeat PT/INR tomorrow. Target date of discharge is tomorrow Exam - Constitutional Vitals: Period Temp Pulse Resp BP Sys/Pineda Pulse Ox Last 24 Hr 97.2 F-98.4 F 59-68 18-20 113-153/58-74 94-99 General appearance: normal weight, no acute distress - Head Head exam: Present: normal inspection - Eye Eye exam: Present: EOMI Pupils: Present: JOSE - ENT ENT exam: Present: normal exam - Respiratory Respiratory exam: Present: clear to auscultation bilaterally - Cardiovascular Cardiovascular exam: Present: regular rate and rhythm - GI/Abdominal GI/Abdominal exam: Present: normal bowel sounds, soft - Extremities Exam Extremities exam: Present: full ROM - Neurological Exam Neurological exam: Present: alert, oriented X3, CN II-XII intact - Psychiatric Psychiatric exam: Present: normal affect, normal mood, depressed - Skin Skin exam: Present: warm, dry, other (This edema.) Results - Labs CBC & BMP: 12/10/16 05:05 12/10/16 05:05 Lab Results: I have reviewed the past 24 hour labs (INR 1.7) Quality Measures - VTE Contraindication to Mechanical VTE Prophylaxis: Current Diagnosis of DVT
--- NOTE | 2016-12-10 14:15 | General Surgery Progress Note ---
Assessment and Plan - Time spent with patient Time spent with patient: Less than 30 minutes Subjective Narrative: Patient feels well without complaints. He feels his leg is doing much better. Exam - Constitutional Vitals: Period Temp Pulse Resp BP Sys/Pineda Pulse Ox Last 24 Hr 97.2 F-98.4 F 59-68 18-20 113-153/58-74 94-99 Exam: 76-year-old white male, no acute distress, alert and oriented Chest clear CV regular rate and rhythm Abdomen soft and nontender Extremities with no edema, minimal redness around the right ankle, right medial wound has a little bit of necrotic tissue Results - Labs CBC & BMP: 12/10/16 05:05 12/10/16 05:05 Lab Results: I have reviewed the past 24 hour labs Quality Measures - VTE Contraindication to Mechanical VTE Prophylaxis: Current Diagnosis of DVT Specialty Discharge - Follow Up or Referrals Follow up with: Tavo Francisco III., MD [Physician] - 1 Week Hardik Cook MD [Physician] - 1 Month (With the BMP and a CBC)
--- NOTE | 2016-12-10 14:22 | Nephrology Progress Note ---
Nephrology - PN: Subj Interval history: Patient denies shortness of breath. Review of systems GI denies nausea vomiting Physical exam general patient in no acute distress, his right leg looks much improved Assessment/plan 1. Acute renal failure-this patient's creatinine to 1.8 mg/dL this is improved from earlier in his hospitalization, this may be his new baseline, I will have him follow-up with me in about 1 month to recheck his kidney function 2. Leg cellulitis continue antibiotics 3. Hypertension this is controlled 4. Hyperkalemia this is resolved Exam (PN)-Nephrology - Vital Signs Vital signs: Period Temp Pulse Resp BP Sys/Pineda Pulse Ox Last 24 Hr 97.2 F-98.4 F 59-68 18-20 113-153/58-74 94-99 - Lab 12/10/16 05:05 12/10/16 05:05 Most recent lab results Calcium 8.0 MG/DL (8.5-10.1) L 12/10/16 05:05 Magnesium 1.7 MG/DL (1.8-2.4) L 12/10/16 05:05 Assessment and Plan (1) Acute kidney injury Status: Acute Assessment and plan: I suspect this patient has some ATN injury related to his leg wound. Patient states he had not been eating and drinking quite as well as he had been in the past. In addition the patient takes an POLY inhibitor and a diuretic which may have exacerbated the strain to his kidneys from the right leg wound. I agree with IV fluids as ordered and the antibiotics. Hopefully his creatinine will begin to improve as his leg infection improves. I will continue to hold his POLY inhibitor and diuretic for now. Current Visit: Yes (2) Metabolic acidosis Status: Acute Assessment and plan: Give the patient some sodium bicarbonate Current Visit: Yes (3) Cellulitis of right lower extremity Status: Acute Assessment and plan: Continue antibiotics Current Visit: Yes (4) Deep vein thrombosis (DVT) of right lower extremity Status: Acute Current Visit: Yes Qualifiers: Affected thrombotic vein of extremity: popliteal Chronicity: acute Qualified Code(s): I82.431 - Acute embolism and thrombosis of right popliteal vein (5) Hyperkalemia Status: Acute Assessment and plan: This should improve with the IV fluids and correction of his acidosis Current Visit: Yes (6) Polycythemia Status: Acute Current Visit: Yes (7) Hypertension Status: Chronic Assessment and plan: Continue to monitor. Current Visit: Yes Qualifiers: Hypertension type: essential hypertension Qualified Code(s): I10 - Essential (primary) hypertension Specialty Discharge - Follow Up or Referrals Follow up with: Hardik Cook MD [Physician] - 1 Month (With the BMP and a CBC)
[2016-12-10] MEDS: HEPARIN DRIP 25,000 UNITS/500 ML PREMIX IV SCH (16:16)
[2016-12-10] MEDS: WARFARIN 5 MG TABLET PO SCH (20:38)
[2016-12-11] MEDS: CLINDAMYCIN INJ 600 MG in PREMIX 1 EACH IV SCH ×2 (00:51→06:44)
[2016-12-11] MEDS: SODIUM CHLORIDE 0.9% 1,000 ML IV SCH (00:51)
[2016-12-11] MEDS: HEPARIN DRIP 25,000 UNITS/500 ML PREMIX IV SCH (00:59)
[2016-12-11 02:46] LABS: INR 1.9; PT Patient Result 20.5 SECS
[2016-12-11] MEDS: LEVOTHYROXINE 125 MCG TABLET PO SCH (06:43)
--- NOTE | 2016-12-11 07:14 | Nephrology Progress Note ---
Nephrology - PN: Subj Interval history: Patient denies shortness of breath. Review of systems GI denies nausea or vomiting Physical exam general the patient is in no acute distress Assessment/plan 1. Acute renal failure-patient's creatinine was 1.8 mg/dL yesterday this has stabilized 2. Leg cellulitis-continue antibiotics 3. Hypertension this is adequately controlled I am going to sign off please reconsult as needed, I will plan on seeing the patient in follow-up as an outpatient in about a month Exam (PN)-Nephrology - Vital Signs Vital signs: Period Temp Pulse Resp BP Sys/Pineda Pulse Ox Last 24 Hr 96.6 F-98.1 F 55-63 18-22 133-163/70-78 94-96 - Lab 12/10/16 05:05 12/10/16 05:05 Most recent lab results Calcium 8.0 MG/DL (8.5-10.1) L 12/10/16 05:05 Magnesium 1.7 MG/DL (1.8-2.4) L 12/10/16 05:05 Assessment and Plan (1) Acute kidney injury Status: Acute Assessment and plan: I suspect this patient has some ATN injury related to his leg wound. Patient states he had not been eating and drinking quite as well as he had been in the past. In addition the patient takes an POLY inhibitor and a diuretic which may have exacerbated the strain to his kidneys from the right leg wound. I agree with IV fluids as ordered and the antibiotics. Hopefully his creatinine will begin to improve as his leg infection improves. I will continue to hold his POLY inhibitor and diuretic for now. Current Visit: Yes (2) Metabolic acidosis Status: Acute Assessment and plan: Give the patient some sodium bicarbonate Current Visit: Yes (3) Cellulitis of right lower extremity Status: Acute Assessment and plan: Continue antibiotics Current Visit: Yes (4) Deep vein thrombosis (DVT) of right lower extremity Status: Acute Current Visit: Yes Qualifiers: Affected thrombotic vein of extremity: popliteal Chronicity: acute Qualified Code(s): I82.431 - Acute embolism and thrombosis of right popliteal vein (5) Hyperkalemia Status: Acute Assessment and plan: This should improve with the IV fluids and correction of his acidosis Current Visit: Yes (6) Polycythemia Status: Acute Current Visit: Yes (7) Hypertension Status: Chronic Assessment and plan: Continue to monitor. Current Visit: Yes Qualifiers: Hypertension type: essential hypertension Qualified Code(s): I10 - Essential (primary) hypertension Specialty Discharge - Follow Up or Referrals Follow up with: Hardik Cook MD [Physician] - 1 Month (With the BMP and a CBC)
[2016-12-11] MEDS: SODIUM BICARBONATE 650 MG TABLET PO SCH (08:09)
[2016-12-11] MEDS: HYDROXYUREA 500 MG CAPSULE PO SCH (08:09)
[2016-12-11] MEDS: PANTOPRAZOLE 40 MG TABLET PO SCH (08:10)
[2016-12-11] MEDS ORDERED: ENOXAPARIN 80 MG/0.8 ML SYRINGE SUBCUT ONE (09:00)
--- NOTE | 2016-12-11 10:25 | Discharge Summary ---
<Phong Arenas - Last Filed: 12/11/16 11:28> Hospital Course - Hospital Course Hospital Course: Mr. Galvan is a 76 year old male transferred from [facility] the afternoon of 12/05/2016 for further evaluation of right lower extremity redness and swelling. The patient was admitted to the hospital on 12/04/2016 for treatment of cellulitis of the right lower extremity that began approximately 1- 2 weeks prior. The patient was treated as an outpatient with Bactrim. His infection did not resolve and worsened prompting him to go to his doctor's office. He had a lower extremity Doppler that showed a DVT in the superficial femoral vein and popliteal vein. Femoral vein was unremarkable. The patient also has acute kidney injury with a creatinine of 3.5 and a BUN of 68. He was transferred here for further evaluation by nephrology and general surgery. He has a history of polycythemia and is followed by Dr. Ward and Dr. Jose Miguel aPyne. On evaluation, the patient was found to have DVT of the RLE with cellulitis, polycythemia, HTN and LALITA. He was started on a heparin drip with transition to long-term anticoagulation upon renal function improvement. Teflaro 300 mg IV Q12H was started for the cellulitis in addition to the clindamycin. He had consultations from nephrology, hematology and general surgury. He was found to be in metabolic acidosis with a bicarb of 19. This improved with sodium bicarb replacement. The remainder of his course was highlighted by management of chronic conditions and wound care. He is stable for discharge at this time. He has been instructed to follow up with Dr. Francisco for continued wound care in 1 week, Dr. Cook for management of his renal failure in 1 month with BMP and CBC, and Dr. 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 Further discharge orders to follow per Dr. Nguyen. - Time spent with patient Time with patient DS: Greater than 30 minutes Specialty Discharge - Follow Up or Referrals Follow up with: Tavo Francisco III., MD [Physician] - 12/18/16 2:45 pm Jose Miguel Ervin MD [Physician] - (See Dr. Ervin next for PT/INR. Just walk in. No appointment needed. ) Hardik Cook MD [Physician] - 01/15/17 9:15 am (With the BMP and a CBC) Discharge Plan - Discharge Data Disposition: Disch To Home/Self Care - Discharge Medications New Pantoprazole Tab [Protonix Tab] 40 mg PO DAILY #30 tablet Warfarin [Coumadin] 5 mg PO DAILY@1800 #30 tablet cephALEXin [Cephalexin] 750 mg PO Q12HR #14 capsule Skin Healing Oint (Aquaphor) [Aquaphor] 1 applic TOP DAILY #1 vial Continue Hydroxyurea 1,000 mg PO DAILY Levothyroxine Tab [Synthroid Tab] 125 mcg PO DAILY@0700 Lisinopril 20 mg PO DAILY hydroCHLOROthiazide [Hydrochlorothiazide] 1 tablet PO DAILY - Follow Up or Referral Follow Up: Tavo Francisco III., MD [Physician] - 12/18/16 2:45 pm Jose Miguel Ervin MD [Physician] - (See Dr. Ervin next for PT/INR. Just walk in. No appointment needed. ) Hardik Cook MD [Physician] - 01/15/17 9:15 am (With the BMP and a CBC) - Forms/Instructions Exam - Constitutional Vitals: Period Temp Pulse Resp BP Sys/Pineda Pulse Ox Last 24 Hr 96.6 F-98.1 F 55-63 18-22 141-163/70-80 95-96 Discharge Results Procedures and tests throughout hospitalization: Pending Orders 12/11/16 15:00 Partial Thromboplastin Time Q6H 12/11/16 21:00 Partial Thromboplastin Time Q6H 12/12/16 03:00 Partial Thromboplastin Time Q6H 12/12/16 09:00 Partial Thromboplastin Time Q6H 12/12/16 21:30 PTT [Partial Thromboplastin Time] Routine Labs on day of discharge: Labs from last 24 hours 12/11/16 12/11/16 12/11/16 08:52 02:20 02:20 INR 1.9 PT Patient/Control Mix 20.5 Circ Anticoag PTT 100.0 H 94.8 H D POC Glucose 12/10/16 12/10/16 12/10/16 21:19 15:34 15:27 INR PT Patient/Control Mix Circ Anticoag PTT 65.4 H 69.3 H D POC Glucose 95 DS: Provider Date of admission: 12/05/16 15:42 Primary care physician: . No PCP Attending physician on admission: Dell Clemons MD Consults: 12/05/16 14:33 Consult to Physician [CONS] Routine Comment: Consulting Provider: Hardik Cook When should Consulting Provider be notified: In am Person Notified: RITA Date Notified: 12/06/16 Time Notified: 09:54 Consult to Physician [CONS] Routine Comment: Consulting Provider: Demetrio Albarado When should Consulting Provider be notified: In am Person Notified: LEIDA Date Notified: 12/06/16 Time Notified: 08:35 12/05/16 14:35 Consult to Wound Care - North [CONS] Routine Reason for Wound Care: Wound Care Management 12/05/16 17:20 Consult to Dietitian [CONS] Routine Reason for Dietitian: Dietary Consult Consult Comment: 25lb weight loss over 1 month Consult to Pastoral Services [CONS] Routine Comment: Pastoral Screen: Request Client Partner Visit 12/05/16 19:48 Consult to Physician [CONS] Routine Comment: RLE cellulitis Consulting Provider: Tavo Francisco III. Person Notified: HUE Date Notified: 12/06/16 Time Notified: 09:10 12/10/16 14:19 Consult to Physical Therapy [CONS] Routine Reason for Physical Therapy: Evaluate and Treat Discharging clinician: Phong XAVIER Expected date of discharge: 12/11/16 <Preet Nguyen - Last Filed: 12/11/16 12:48> Diagnosis - Discharge Diagnosis (1) [id number] kidney injury Status: Acute (2) Deep vein thrombosis (DVT) of right lower extremity Status: Acute (3) Cellulitis of right lower extremity Status: Acute (4) Polycythemia Status: Acute Discharge Plan - Discharge Data Condition at Discharge: Stable Discharge Diet: heart healthy, high fiber diet Activity: increase activity as tolerated Hygiene: no restrictions Weight Bearing at Discharge: weight bear as tolerated Driving: not until seen by doctor Contact your physician if you experience:: fever over 101, Shortness of breath, pain uncontrolled by pain medications Wound / Dressing Care Instructions: Keep right lower extremity wound cleaned and dressed every day Exam - Constitutional General appearance: normal weight, no acute distress - Head Head exam: Present: normocephalic, atraumatic - Eye Eye exam: Present: EOMI Pupils: Present: JOSE - ENT ENT exam: Present: normal exam - Neck Neck exam: Present: normal inspection - Respiratory Respiratory exam: Present: clear to auscultation bilaterally - Cardiovascular Cardiovascular exam: Present: regular rate and rhythm - GI/Abdominal GI/Abdominal exam: Present: normal bowel sounds, soft - Extremities Exam Extremities exam: Present: full ROM - Neurological Exam Neurological exam: Present: alert, oriented X3, CN II-XII intact - Skin Skin exam: Present: warm, dry, other (And also in the medial aspect of the right lower extremity that is healing. Should keep this clean and dry.)
[2016-12-11] MEDS: CEFTAROLINE 400 MG in SODIUM CHLORIDE 0.9% 100 ML IV SCH (11:38)
[2016-12-11] MEDS: SKIN HEALING OINT (AQUAPHOR) 50 GM TUBE TOP SCH (11:39)
[2016-12-11] MEDS: BACITRACIN OINT 0.9 GM PACK TOP SCH (11:39)
[2016-12-11 12:12] VITALS: BP 158/83
--- NOTE | 2016-12-11 12:37 | General Surgery Progress Note ---
Assessment and Plan (1) Cellulitis of right lower extremity Status: Acute Assessment and plan: He appears to have a cellulitis and the source of this is unclear. He does not recall ever having an x-ray of his lower extremity to make sure that there is not a foreign body present in the site of this wound that has not healed. We will obtain an x-ray. I would agree with the IV antibiotics and elevation as you are doing. 12/07: He feels better and feels like his leg looks better. I agree that the erythema has decreased and the edema has decreased. He is responding to antibiotics and anticoagulation. I will be happy to see him back in follow-up once his cellulitis resolves. We may need to address this chronic wound on his medial calf. 12/10: He feels much better and has no complaints. He is not having pain. His cellulitis appears to have resolved. I agree with discharge plans. I have recommended that he wrap his foot and keep edema out of it because of the recent DVT and cellulitis. I will be happy to follow him up in my office. Current Visit: Yes Subjective Patient reports: Present: feels better. Absent: still having pain, fever Exam - Constitutional Vitals: Period Temp Pulse Resp BP Sys/Pineda Pulse Ox Last 24 Hr 96.6 F-98.1 F 55-63 18-22 141-163/70-83 95-96 General appearance: no acute distress - Eye Eye exam: Absent: scleral icterus - Extremities Exam Extremities exam: Present: other (Cellulitis has resolved). Absent: calf tenderness, edema Results - Labs CBC & BMP: 12/10/16 05:05 12/10/16 05:05 Lab Results: I have reviewed the past 24 hour labs Quality Measures - VTE Contraindication to Mechanical VTE Prophylaxis: Current Diagnosis of DVT Specialty Discharge - Follow Up or Referrals Follow up with: Tavo Francisco III., MD [Physician] - 12/18/16 2:45 pm Jose Miguel Ervin MD [Physician] - (See Dr. Ervin next for PT/INR. Just walk in. No appointment needed. ) Hardik Cook MD [Physician] - 01/15/17 9:15 am (With the BMP and a CBC)
--- NOTE | 2016-12-18 13:26 | Physician Query Form ---
CLICK EDIT DOCUMENT TO SELECT QUERY ANSWER --> OK --> SIGN Deysi Reynolds RN Clinical Human Resources Intern W) [phone] (f) [phone] [email or web address]: Make your selection(s) from the choices in EACH section by typing an "x" and enter comments in the comment section. Please use your independent medical judgment in providing your response. This request does not imply that any particular answer is desired or expected. CLINICAL INDICATORS: (Providers should not edit this section) The below diagnosis was documented in the record, but is not consistently noted in subsequent documentation. Based on documentation of "Acute Renal Failure" "Acute Kidney Injury" "Suspect this patient has some ATN injury" Creatinine from 2.7 to 1.9. GFR form 25 to 38 Treated with NS infusion Diagnosis: ATN Please clarify the following: ( ) The above diagnosis was monitored, evaluated, and/or treated and is a confirmed diagnosis ( ) The above diagnosis was ruled out ( ) The above diagnosis is still a likely, suspected, probable diagnosis ( x) Other, please specify: ( ) Clinically unable to determine COMMENTS: This more likely was the result of drug toxicity. Patient was on the trimethoprim sulfamethoxazole alongside POLY inhibitors and thiazide diuretic. PLEASE ALSO DOCUMENT RESPONSE IN PROGRESS NOTES AND/OR DISCHARGE SUMMARY Use of terms such as suspected, likely, or probable (associated with a specific diagnosis that is being evaluated, monitored, or treated as if it exists) are acceptable and can be restated in the discharge summary if not ruled out. MTDD
== END 2016-12-11 13:40 | disposition home or self-care (01) | DRG 300 ==
LOC: N.2E 15:42 → SUATTDRO 15:42
PROVIDERS: ADMIT Internal Medicine; ATTEND Internal Medicine Infectious Disease

== ENCOUNTER 2020-01-27 20:03 | Inpatient (IN) ==
[2020-01-27] MEDS ORDERED: ONDANSETRON 4 MG/2 ML VIAL IV PRN (23:02)
[2020-01-27 23:43] LABS: Hematocrit 30.9 VOL% (42.0-52.0); Hemoglobin 10.2 GM/DL (14.0-18.0); Immature Granulocytes % 1.6 %; Immature Granulocytes Absolute 0.04 #; Lymphocytes # 1.6 10*3/uL (1.4-4.0); Lymphocytes % 65.5 % (21.2-54.2); Mean Corpuscular Volume 125.6 FL (87-102); Mean Platelet Volume 10.6 FL (9.6-12.0); Neutrophils % 30.9 % (38.7-73.9); Platelet Count 87 T/CUMM (130-400); Red Blood Count 2.46 MC/CUMM (3.8-5.5); Red Cell Distribution Width 12.4 % (9.3-17.3); White Blood Count 2.5 T/CUMM (4-12)
[2020-01-27] MEDS: SODIUM CHLORIDE 0.9% 1,000 ML IV SCH (23:46)
[2020-01-27 23:49] LABS: Calcium 9.2 MG/DL (8.5-10.1); Osmolality,Calculated 295.3 MOS/KG (273-304)
[2020-01-27 23:53] LABS: Bilirubin,Urine Negative (Negative); Blood, Urine Negative (Negative); Glucose,Urine (UA) Negative (Negative); Ketones,Urine Negative (Negative); Mucus,Urine Occasional /LPF (Occasional); Nitrite,Urine Negative (Negative); Protein,Urine Negative; RBC,Urine <1 /HPF (0-4); Squamous Epithelial Cell,Urine Occasional /HPF (0-10); Urine Appearance CLEAR (Clear); Urine Color Yellow (Yellow); Urine Specific Gravity 1.015 (1.001-1.035); Urine Urobilinogen < 2.0 EU/DL (0.2-1.0)
[2020-01-27 23:58] LABS: Barbiturates Screen,Urine Negative (Negative); Benzodiazepines Screen,Urine Negative (Negative); Cannabinoid Screen,Urine Negative (Negative); Opiate Screen,Urine Negative (Negative); Phencyclidine Screen,Urine Negative (Negative)
[2020-01-28] MEDS ORDERED: ACETAMINOPHEN 325 MG TABLET PO PRN (00:45)
[2020-01-28] MEDS ORDERED: diphenhydrAMINE CAP 25 MG CAPSULE PO PRN (00:45)
[2020-01-28] MEDS ORDERED: ZALEPLON 5 MG CAPSULE PO PRN (00:45)
[2020-01-28] MEDS ORDERED: DOCUSATE SODIUM 100 MG CAPSULE PO PRN (00:45)
[2020-01-28] MEDS ORDERED: DEXTROSE 50% 25 GM/50 ML VIAL IV PRN (00:45)
[2020-01-28] MEDS ORDERED: GLUCAGON 1 MG VIAL IM PRN (00:45)
[2020-01-28] MEDS ORDERED: hydrALAZINE 20 MG/1 ML VIAL IV PRN (00:45)
[2020-01-28] MEDS ORDERED: NICOTINE 21 MG/24 HR PATCH TRANSDERM PRN (00:45)
[2020-01-28] MEDS ORDERED: guaiFENesin/DM ER 600-30 MG TABLET PO PRN (00:45)
[2020-01-28] MEDS ORDERED: MORPHINE 4 MG/1 ML VIAL IV PRN (00:45)
[2020-01-28] MEDS ORDERED: AZITHROMYCIN INJ 500 MG in SODIUM CHLORIDE 0.9% 250 ML IV SCH (01:30)
[2020-01-28] MEDS: PIPERACILLIN/TAZOBACTAM 3,375 MG in SODIUM CHLORIDE 0.9% 100 ML IV SCH ×3 (02:02→18:22)
[2020-01-28 02:51] LABS: Band Neutrophils 4 % (0-10); Lymphocytes 70 % (20-55); Platelet Estimate Decreased; Segmented Neutrophils 18 % (50-85)
[2020-01-28 02:52] LABS: Anisocytosis 2+; Macrocytosis 2+; Total Cells Counted 100
[2020-01-28] MEDS: VANCOMYCIN INJ 1,250 MG in SODIUM CHLORIDE 0.9% 250 ML IV SCH (06:48)
[2020-01-28] MEDS ORDERED: INFLUENZA VIRUS VACCINE 0.5 ML SYRINGE IM ONE (07:05)
[2020-01-28] MEDS ORDERED: AZITHROMYCIN 250 MG TABLET PO SCH (09:00)
[2020-01-28] MEDS ORDERED: hydroCHLOROthiazide 25 MG TABLET PO SCH (09:00)
[2020-01-28] MEDS: PANTOPRAZOLE 40 MG TABLET PO SCH (09:43)
[2020-01-28] MEDS: methylPREDNISolone SOD SUC 40 MG/1 ML VIAL IV SCH ×2 (09:45→18:22)
[2020-01-28] MEDS ORDERED: FUROSEMIDE 40 MG/4 ML VIAL IV ONE (12:08)
[2020-01-28] MEDS: SODIUM CHLORIDE 0.9% 1,000 ML IV SCH ×2 (12:53→18:21)
[2020-01-28] MEDS: ENOXAPARIN 40 MG/0.4 ML SYRINGE SUBCUT SCH (14:59)
[2020-01-28 18:04] LABS: INR 1.5; PT Patient Result 15.4 SECS (9.8-11.9); Partial Thromboplastin Time 40.7 SECS (23.9-33.8)
[2020-01-28] MEDS: ALBUTEROL/IPRATROPIUM 3 ML NEB RESP TX SCH (19:39)
[2020-01-29] MEDS: PIPERACILLIN/TAZOBACTAM 3,375 MG in SODIUM CHLORIDE 0.9% 100 ML IV SCH ×3 (01:01→18:39)
[2020-01-29] MEDS: methylPREDNISolone SOD SUC 40 MG/1 ML VIAL IV SCH ×3 (01:02→17:53)
[2020-01-29] MEDS: ALBUTEROL/IPRATROPIUM 3 ML NEB RESP TX SCH ×4 (01:25→19:04)
[2020-01-29] MEDS: VANCOMYCIN INJ 1,250 MG in SODIUM CHLORIDE 0.9% 250 ML IV SCH (05:45)
[2020-01-29] MEDS: SODIUM CHLORIDE 0.9% 1,000 ML IV SCH (05:45)
[2020-01-29 05:58] LABS: Basophils % 0.2 % (0.0-0.8); Hematocrit 29.5 VOL% (42.0-52.0); Immature Granulocytes Absolute 0.49 #; Lymphocytes # 2.4 10*3/uL (1.4-4.0); Lymphocytes % 48.8 % (21.2-54.2); Mean Corpuscular HGB Conc 33.9 GM/DL (32-36); Mean Platelet Volume 10.5 FL (9.6-12.0); Monocytes % 6.1 % (1.7-12.7); Neutrophils % 34.9 % (38.7-73.9); Platelet Count 117 T/CUMM (130-400); Red Blood Count 2.36 MC/CUMM (3.8-5.5); Red Cell Distribution Width 12.9 % (9.3-17.3); White Blood Count 4.9 T/CUMM (4-12)
[2020-01-29 06:24] LABS: Band Neutrophils 1 % (0-10); Hypochromasia 1+; Lymphocytes 52 % (20-55); Ovalocytes Slight; Platelet Estimate Decreased; Segmented Neutrophils 45 % (50-85); Total Cells Counted 100
[2020-01-29 06:25] LABS: Atypical Lymphocytes Few
[2020-01-29 06:27] LABS: Calcium 9.2 MG/DL (8.5-10.1)
[2020-01-29] MEDS ORDERED: SODIUM CHLORIDE 0.9% 100 ML IV ONE (08:35)
[2020-01-29] MEDS ORDERED: DIGOXIN 0.5 MG/2 ML AMP IV ONE ×2 (08:36→14:28)
[2020-01-29] MEDS ORDERED: ALBUTEROL/IPRATROPIUM 3 ML NEB RESP TX ONE ×2 (12:46→18:11)
[2020-01-29] MEDS ORDERED: BUPIVACAINE MPF 0.25% 30 ML VIAL ONE (13:25)
[2020-01-29] MEDS ORDERED: LIDOCAINE 1%/EPI INJ 20 ML VIAL ONE (13:25)
[2020-01-29] MEDS ORDERED: SODIUM CHLORIDE 0.9% 500 ML IV ONE (14:26)
[2020-01-29] MEDS ORDERED: HYDROCORTISONE 100 MG VIAL IV ONE (14:28)
[2020-01-29] MEDS ORDERED: MIDAZOLAM 2 MG/2 ML VIAL ONE (15:10)
[2020-01-29] MEDS ORDERED: ETOMIDATE 40 MG/20 ML VIAL IV ONE (15:10)
[2020-01-29] MEDS ORDERED: LIDOCAINE 2% 5 ML VIAL ONE (15:10)
[2020-01-29] MEDS: ZINC OXIDE PASTE 113 GM TUBE TOP SCH ×2 (16:28→22:59)
[2020-01-29] MEDS: PANTOPRAZOLE 40 MG TABLET PO SCH (16:29)
[2020-01-30] MEDS: ALBUTEROL/IPRATROPIUM 3 ML NEB RESP TX SCH ×4 (00:49→19:25)
[2020-01-30] MEDS: methylPREDNISolone SOD SUC 40 MG/1 ML VIAL IV SCH ×3 (01:35→17:27)
[2020-01-30] MEDS: PIPERACILLIN/TAZOBACTAM 3,375 MG in SODIUM CHLORIDE 0.9% 100 ML IV SCH ×3 (01:36→17:25)
[2020-01-30] MEDS: SODIUM CHLORIDE 0.9% 1,000 ML IV SCH ×2 (01:44→17:32)
[2020-01-30 05:57] LABS: Basophils % 0.2 % (0.0-0.8); Hematocrit 30.1 VOL% (42.0-52.0); Immature Granulocytes % 0.7 %; Immature Granulocytes Absolute 0.04 #; Lymphocytes # 1.9 10*3/uL (1.4-4.0); Lymphocytes % 33.9 % (21.2-54.2); Mean Corpuscular HGB Conc 33.2 GM/DL (32-36); Mean Corpuscular Volume 124.4 FL (87-102); Mean Platelet Volume 10.3 FL (9.6-12.0); Monocytes % 6.7 % (1.7-12.7); Neutrophils % 58.5 % (38.7-73.9); Platelet Count 121 T/CUMM (130-400); Red Blood Count 2.42 MC/CUMM (3.8-5.5); White Blood Count 5.7 T/CUMM (4-12)
[2020-01-30 06:19] LABS: Calcium 9.5 MG/DL (8.5-10.1); Osmolality,Calculated 310.8 MOS/KG (273-304)
[2020-01-30 06:23] LABS: Prealbumin 9.7 MG/DL (20-40)
[2020-01-30 06:28] LABS: Band Neutrophils 1 % (0-10); Hypochromasia 1+; Lymphocytes 21 % (20-55); Macrocytosis 1+; Segmented Neutrophils 69 % (50-85); Total Cells Counted 100
[2020-01-30 06:29] LABS: Ovalocytes Slight; Platelet Estimate Decreased
[2020-01-30] MEDS: VANCOMYCIN INJ 1,250 MG in SODIUM CHLORIDE 0.9% 250 ML IV SCH (06:38)
[2020-01-30] MEDS ORDERED: ALBUTEROL/IPRATROPIUM 3 ML NEB RESP TX ONE (06:57)
[2020-01-30] MEDS ORDERED: POTASSIUM CHLORIDE 20 MEQ TABLET PO ONE (07:08)
[2020-01-30] MEDS: PANTOPRAZOLE 40 MG TABLET PO SCH (08:52)
[2020-01-30] MEDS: ZINC OXIDE PASTE 113 GM TUBE TOP SCH (08:52)
[2020-01-30] MEDS ORDERED: DIGOXIN 0.5 MG/2 ML AMP IV ONE (09:15)
[2020-01-30] MEDS: DIGOXIN 0.125 MG TABLET PO SCH (14:39)
[2020-01-31] MEDS: ZINC OXIDE PASTE 113 GM TUBE TOP SCH ×3 (00:13→23:34)
[2020-01-31] MEDS: SODIUM CHLORIDE 0.9% 1,000 ML IV SCH (00:14)
[2020-01-31] MEDS: ALBUTEROL/IPRATROPIUM 3 ML NEB RESP TX SCH ×4 (01:03→19:01)
[2020-01-31] MEDS: methylPREDNISolone SOD SUC 40 MG/1 ML VIAL IV SCH ×3 (01:44→17:46)
[2020-01-31] MEDS: PIPERACILLIN/TAZOBACTAM 3,375 MG in SODIUM CHLORIDE 0.9% 100 ML IV SCH ×3 (01:46→17:46)
[2020-01-31] MEDS: VANCOMYCIN INJ 1,250 MG in SODIUM CHLORIDE 0.9% 250 ML IV SCH (06:22)
[2020-01-31] MEDS ORDERED: POTASSIUM CHLORIDE RIDER 10 MEQ in PREMIX 1 EACH IV PRN (07:37)
[2020-01-31] MEDS ORDERED: POTASSIUM CHLORIDE 20 MEQ TABLET PO PRN (07:37)
[2020-01-31 08:31] LABS: Calcium 9.3 MG/DL (8.5-10.1)
[2020-01-31] MEDS: PANTOPRAZOLE 40 MG TABLET PO SCH (09:16)
[2020-01-31] MEDS: APIXABAN 5 MG TABLET PO SCH (09:16)
[2020-01-31] MEDS: DIGOXIN 0.125 MG TABLET PO SCH (14:06)
[2020-01-31] MEDS ORDERED: ALBUTEROL/IPRATROPIUM 3 ML NEB RESP TX ONE (22:48)
[2020-02-01] MEDS: ALBUTEROL/IPRATROPIUM 3 ML NEB RESP TX SCH ×5 (00:51→23:56)
[2020-02-01] MEDS: PIPERACILLIN/TAZOBACTAM 3,375 MG in SODIUM CHLORIDE 0.9% 100 ML IV SCH ×3 (01:31→17:55)
[2020-02-01] MEDS: methylPREDNISolone SOD SUC 40 MG/1 ML VIAL IV SCH ×2 (01:31→10:58)
[2020-02-01 05:54] LABS: Basophils % 0.1 % (0.0-0.8); Hematocrit 28.5 VOL% (42.0-52.0); Hemoglobin 9.4 GM/DL (14.0-18.0); Immature Granulocytes % 1.7 %; Immature Granulocytes Absolute 0.13 #; Lymphocytes # 1.5 10*3/uL (1.4-4.0); Lymphocytes % 19.4 % (21.2-54.2); Mean Platelet Volume 10.6 FL (9.6-12.0); Neutrophils % 72.8 % (38.7-73.9); Platelet Count 109 T/CUMM (130-400); Red Blood Count 2.28 MC/CUMM (3.8-5.5); Red Cell Distribution Width 13.2 % (9.3-17.3); White Blood Count 7.5 T/CUMM (4-12)
[2020-02-01] MEDS: VANCOMYCIN INJ 1,250 MG in SODIUM CHLORIDE 0.9% 250 ML IV SCH (06:06)
[2020-02-01 06:18] LABS: Hypochromasia 1+; Platelet Estimate Decreased
[2020-02-01 06:19] LABS: Macrocytosis Slight
[2020-02-01 06:23] LABS: Calcium 8.9 MG/DL (8.5-10.1); Osmolality,Calculated 294.4 MOS/KG (273-304)
[2020-02-01 06:28] LABS: Calcium 8.8 MG/DL (8.5-10.1); Osmolality,Calculated 294.4 MOS/KG (273-304); Prealbumin 17.9 MG/DL (20-40)
[2020-02-01] MEDS ORDERED: ALBUTEROL/IPRATROPIUM 3 ML NEB RESP TX ONE (07:16)
[2020-02-01] MEDS ORDERED: TUBERCULIN SKIN TEST 0.1 ML SYRINGE INTRADERM ONE (09:05)
[2020-02-01] MEDS: PANTOPRAZOLE 40 MG TABLET PO SCH (10:34)
[2020-02-01] MEDS: APIXABAN 5 MG TABLET PO SCH (10:34)
[2020-02-01] MEDS: ZINC OXIDE PASTE 113 GM TUBE TOP SCH ×2 (10:35→21:22)
[2020-02-01] MEDS: DIGOXIN 0.125 MG TABLET PO SCH (13:58)
[2020-02-01] MEDS: ENOXAPARIN 40 MG/0.4 ML SYRINGE SUBCUT SCH (14:33)
[2020-02-02] MEDS: PIPERACILLIN/TAZOBACTAM 3,375 MG in SODIUM CHLORIDE 0.9% 100 ML IV SCH ×3 (01:52→18:42)
[2020-02-02 05:46] LABS: Basophils % 0.1 % (0.0-0.8); Eosinophils % 0.1 % (0.00-10.9); Hematocrit 28.5 VOL% (42.0-52.0); Hemoglobin 9.6 GM/DL (14.0-18.0); Immature Granulocytes % 3.2 %; Immature Granulocytes Absolute 0.27 #; Lymphocytes # 1.8 10*3/uL (1.4-4.0); Lymphocytes % 20.6 % (21.2-54.2); Mean Corpuscular HGB Conc 33.7 GM/DL (32-36); Mean Corpuscular Volume 124.5 FL (87-102); Mean Platelet Volume 10.6 FL (9.6-12.0); Monocytes % 5.9 % (1.7-12.7); NRBC # 0.02 10*3/uL; Neutrophils % 70.1 % (38.7-73.9); Platelet Count 107 T/CUMM (130-400); Red Blood Count 2.29 MC/CUMM (3.8-5.5); Red Cell Distribution Width 13.3 % (9.3-17.3); White Blood Count 8.5 T/CUMM (4-12)
[2020-02-02 06:06] LABS: Calcium 8.1 MG/DL (8.5-10.1); Osmolality,Calculated 293.1 MOS/KG (273-304)
[2020-02-02 06:11] LABS: Band Neutrophils 1 % (0-10); Hypochromasia 1+; Lymphocytes 22 % (20-55); Microcytosis 1+; Nucleated Red Blood Cells 1 (0-5); Ovalocytes Slight; Platelet Estimate Decreased; Segmented Neutrophils 71 % (50-85); Total Cells Counted 100
[2020-02-02 06:12] LABS: Atypical Lymphocytes Few
[2020-02-02] MEDS: ALBUTEROL/IPRATROPIUM 3 ML NEB RESP TX SCH ×3 (07:40→19:48)
[2020-02-02] MEDS: ZINC OXIDE PASTE 113 GM TUBE TOP SCH ×2 (08:28→21:27)
[2020-02-02] MEDS: PANTOPRAZOLE 40 MG TABLET PO SCH (08:28)
[2020-02-02] MEDS: APIXABAN 5 MG TABLET PO SCH (08:28)
[2020-02-02] MEDS: DIGOXIN 0.125 MG TABLET PO SCH (16:01)
[2020-02-02] MEDS: APIXABAN 2.5 MG TABLET PO SCH (21:21)
[2020-02-03] MEDS: ALBUTEROL/IPRATROPIUM 3 ML NEB RESP TX SCH ×4 (00:01→19:42)
[2020-02-03] MEDS: PIPERACILLIN/TAZOBACTAM 3,375 MG in SODIUM CHLORIDE 0.9% 100 ML IV SCH ×3 (01:25→18:23)
[2020-02-03 05:01] LABS: Basophils % 0.1 % (0.0-0.8); Eosinophils % 0.1 % (0.00-10.9); Hematocrit 27.2 VOL% (42.0-52.0); Hemoglobin 9.3 GM/DL (14.0-18.0); Immature Granulocytes % 4.3 %; Immature Granulocytes Absolute 0.32 #; Lymphocytes # 1.8 10*3/uL (1.4-4.0); Lymphocytes % 23.4 % (21.2-54.2); Mean Corpuscular HGB Conc 34.2 GM/DL (32-36); Mean Corpuscular Volume 123.1 FL (87-102); Mean Platelet Volume 10.4 FL (9.6-12.0); Monocytes % 5.2 % (1.7-12.7); Neutrophils % 66.9 % (38.7-73.9); Platelet Count 115 T/CUMM (130-400); Red Blood Count 2.21 MC/CUMM (3.8-5.5); Red Cell Distribution Width 13.1 % (9.3-17.3); White Blood Count 7.5 T/CUMM (4-12)
[2020-02-03 05:21] LABS: Calcium 7.9 MG/DL (8.5-10.1); Osmolality,Calculated 280.8 MOS/KG (273-304)
[2020-02-03 05:28] LABS: Hypochromasia 1+; Microcytosis Slight; Ovalocytes Slight; Platelet Estimate Decreased
[2020-02-03] MEDS: PANTOPRAZOLE 40 MG TABLET PO SCH (09:09)
[2020-02-03] MEDS: APIXABAN 2.5 MG TABLET PO SCH ×2 (09:10→20:09)
[2020-02-03] MEDS: ZINC OXIDE PASTE 113 GM TUBE TOP SCH ×2 (09:10→20:09)
[2020-02-03] MEDS: DIGOXIN 0.125 MG TABLET PO SCH (12:58)
[2020-02-04] MEDS: ALBUTEROL/IPRATROPIUM 3 ML NEB RESP TX SCH ×4 (01:58→19:15)
[2020-02-04] MEDS: PIPERACILLIN/TAZOBACTAM 3,375 MG in SODIUM CHLORIDE 0.9% 100 ML IV SCH ×2 (02:04→09:59)
[2020-02-04 07:06] LABS: Basophils % 0.2 % (0.0-0.8); Eosinophils % 0.2 % (0.00-10.9); Hematocrit 28.4 VOL% (42.0-52.0); Hemoglobin 9.4 GM/DL (14.0-18.0); Immature Granulocytes % 6.5 %; Immature Granulocytes Absolute 0.53 #; Lymphocytes # 1.9 10*3/uL (1.4-4.0); Lymphocytes % 23.5 % (21.2-54.2); Mean Corpuscular HGB Conc 33.1 GM/DL (32-36); Mean Corpuscular Volume 122.9 FL (87-102); Mean Platelet Volume 10.7 FL (9.6-12.0); Monocytes % 3.9 % (1.7-12.7); Neutrophils % 65.7 % (38.7-73.9); Platelet Count 148 T/CUMM (130-400); Red Blood Count 2.31 MC/CUMM (3.8-5.5); Red Cell Distribution Width 13.5 % (9.3-17.3); White Blood Count 8.2 T/CUMM (4-12)
[2020-02-04 07:30] LABS: Calcium 8.1 MG/DL (8.5-10.1); Osmolality,Calculated 272.2 MOS/KG (273-304)
[2020-02-04 07:31] LABS: Hypochromasia 1+; Lymphocytes 18 % (20-55); Myelocytes 2 %; Segmented Neutrophils 72 % (50-85); Total Cells Counted 100
[2020-02-04 07:32] LABS: Microcytosis Slight; Platelet Estimate Adequate; Polychromasia Slight
[2020-02-04] MEDS ORDERED: MAGNESIUM SULF RIDER 2 GM in PREMIX 1 EACH IV ONE (08:15)
[2020-02-04] MEDS: PANTOPRAZOLE 40 MG TABLET PO SCH (10:02)
[2020-02-04] MEDS: APIXABAN 2.5 MG TABLET PO SCH ×2 (10:02→20:30)
[2020-02-04] MEDS: ZINC OXIDE PASTE 113 GM TUBE TOP SCH ×2 (10:02→20:31)
[2020-02-04] MEDS: DIGOXIN 0.125 MG TABLET PO SCH (13:08)
[2020-02-05] MEDS: ALBUTEROL/IPRATROPIUM 3 ML NEB RESP TX SCH (00:35)
[2020-02-05 08:22] LABS: Calcium 8.2 MG/DL (8.5-10.1); Osmolality,Calculated 268.4 MOS/KG (273-304)
[2020-02-05] MEDS: APIXABAN 2.5 MG TABLET PO SCH (10:07)
[2020-02-05] MEDS: PANTOPRAZOLE 40 MG TABLET PO SCH (10:07)
[2020-02-05] MEDS: ZINC OXIDE PASTE 113 GM TUBE TOP SCH (10:08)
[2020-02-05] MEDS: DIGOXIN 0.125 MG TABLET PO SCH (12:40)
[2020-02-05 15:46] VITALS: BP 114/49
== END 2020-02-05 16:26 | disposition swing bed (61) | DRG 871 ==
LOC: N.4E 22:38 → SUATTDRO 22:38 → SUPCPDRO 22:38
PROVIDERS: ADMIT Internal Medicine; ATTEND Internal Medicine
PROC: EGDWPEG (ICD-10-PCS; 2020-01-29 07:05)